=== PATIENT | female | born 1970 | race Caucasian/White ===

== ENCOUNTER → 2024-05-04 08:31 | Outpatient (REF) | payer BC, SELFPAY | LOC: HWWDC 08:31 | PROVIDERS: ATTENDING PHYSICIAN Internal Medicine | DX: Z12.31 Encounter for screening mammogram for malignant neoplasm of breast (principal) | CPT/HCPCS: 77063; 77067 ==

== ENCOUNTER 2024-12-26 15:24 | Emergency (ER) | payer BC, SELFPAY ==
[2024-12-26 15:36] VITALS: BP 152/82
[2024-12-26 16:11] LABS: % Basophils 0.4 % (0-2); % Eosinophils 1.1 % (0-6); % Immature Granulocytes 0.3 % (0-0.5); % Lymphocytes 22.2 % (20.5-51.1); % Monocytes 4.4 % (1.7-9.3); % Neutrophils 71.6 % (42.2-75.2); Absolute Eosinophils 0.1 10^3/uL (0-0.7); Absolute Monocytes 0.4 10^3/uL (0.1-0.6); Absolute Neutrophils 6.6 10^3/uL (1.4-6.5); Hematocrit 42.4 % (37.0-47.0); Hemoglobin 14.3 g/dL (12.0-16.0); Mean Corp Hgb Conc. 33.7 g/dL (33.0-37.0); Mean Corpuscular Hgb 29.5 pg (27.0-31.0); Mean Corpuscular Volume 87.6 fL (81.0-99.0); Mean Platelet Volume 9.8 fL (7.4-10.4); Nucleated Red Blood Cells % 0 %; Platelet Count 253 10^3/uL (130-400); Red Blood Cell Count 4.84 10^6/uL (4.20-5.40); Red Cell Dist. Width 12.8 % (11.5-14.5); White Blood Cell Count 9.2 10^3/uL (4.8-10.8)
[2024-12-26 16:14] LABS: INR 0.96; PT 13.1 Sec (11.4-14.6)
--- NOTE | 2024-12-26 16:15 | ED.GENMED ---
History of Present Illness
<Lio Chaudhari DO - Last Filed: 12/26/24 23:47>
General
Chief Complaint: Cardiac Symptoms
Source: patient and spouse
Exam Limitations: none
Time Seen by Provider: 12/26/24 16:48
Nursing documentation reviewed up to this point in time: agreed with
History of Present Illness
History of Present Illness:
54 yo female presents to the emergency department complaining of right jaw pain and pain behind her shoulder blades. The pain in her jaw is constant, pain about her shoulder blades intermittent.
Past History
<Lio Chaudhari DO - Last Filed: 12/26/24 23:47>
Past History
ED Past Medical History: None
ED Past Surgical History: and Other (Hernia repair, jaw surgery)
Social History
Tobacco: Non-smoker
Alcohol: None
Drug: None
Personal:
Living: with family
Review of Systems
<Lio Chaudhari, DO - Last Filed: 12/26/24 23:47>
Review of Systems
Allergies reviewed?: Yes
All Other Systems: Not applicable
Constitutional: Reports no symptoms
EENT: Reports mouth pain
Respiratory: Reports no symptoms
Cardiac: Reports no symptoms
ABD/GI: Reports no symptoms
: Reports no symptoms
Musculoskeletal: Reports back pain
Skin: Reports no symptoms
Neurological: Reports no symptoms
Endocrine: Reports no symptoms
Hematologic/Lymphatic: Reports no symptoms
Psychiatric: Reports no symptoms
Phy Exam
<Lio Chaudhari DO - Last Filed: 12/26/24 23:47>
Physical Exam
Physical Exam:
Physical Exam
General: no apparent distress, not acutely ill
Neck: supple. no meningeal signs. normal posterior pharynx
Heart: s1/s2 regular rate and rhythm, no murmur. equal radial
pulses.
HEENT: Pupils equal round reactive to light, EOMI
Lungs: no acute respiratory distress. clear bilaterally
Abdomen: normal bowel sounds. not tender. no CVAT
Neuro: alert and oriented. no focal neurological deficits cranial nerves II through XII intact
Skin: no rash
Psychiatric: well kept. interactive and cooperative
Extremities: no edema. no calf tenderness. negative homans. good distal pulses
Scores
<Lio Chaudhari, DO - Last Filed: 12/26/24 23:47>
Heart Score for Chest Pain Patients
STEMI patient?: No
History: Slightly or Non-Suspicious
ECG: Normal
Age: >45 - <65 years
Risk Factors: No Risk Factors
Troponin: </= Normal Limit
Heart Score for Chest Pain Patients: 1
Heart Score Risk: 2.5% MACE over next 6 weeks
Course
<Lio Chaudhari, DO - Last Filed: 12/26/24 23:47>
Orders/Labs/Results
Orders:
Orders
12/26/24 15:25
EKG [Electrocardiogram (*1)] Urgent
Reason for Study: Other
Other Reason for Exam: bilateral shoulder caty pain with jaw right jaw pain
EKG- Treatment ONCE
12/26/24 15:42
CR Chest - 2 Views Urgent
Comment:
Reason For Exam: back pain into the jaw
12/26/24 15:51
Complete Blood Count/With Diff Urgent
Comprehensive Metabolic Panel Urgent
D-Dimer Urgent
Comment: ADD ON
Prothrombin Time Urgent
TSH Reflex To Free T4 Urgent
Troponin I Urgent
12/26/24 17:06
Add On- LAB Urgent
Tests Added?: d dimer
12/26/24 17:36
CT Chest PE Study Urgent
Comment:
Reason For Exam: back pain, elevated ddimer
12/26/24 18:49
Troponin I Urgent
Abnormal Lab Results
12/26/24
15:51
Absolute Neuts (auto) 6.6 H 10^3/uL
(1.4-6.5)
D-Dimer 0.61 H ug/mlFEU
(0.00-0.50)
Glucose 122 H mg/dl
(70-99)
12/26/24 15:51
12/26/24 15:51
Vital Signs
Initial and Last Documented VS:
Initial Vital Signs
Temp Pulse Resp BP Pulse Ox
98.8 F 100 17 152/82 99
12/26/24 15:36 12/26/24 15:36 12/26/24 15:36 12/26/24 15:36 12/26/24 15:36
Last Documented Vital Signs
Temp Pulse Resp BP Pulse Ox
98.8 F 79 18 138/62 100
12/26/24 15:36 12/26/24 20:16 12/26/24 20:16 12/26/24 20:16 12/26/24 20:16
<Lubna Gilman, SE[employer] P[employer] PRESS OPERATOR - Last Filed: >
Orders/Labs/Results
Orders:
Orders
12/26/24 15:25
EKG [Electrocardiogram (*1)] Urgent
Reason for Study: Other
Other Reason for Exam: bilateral shoulder caty pain with jaw right jaw pain
EKG- Treatment ONCE
12/26/24 15:42
CR Chest - 2 Views Urgent
Comment:
Reason For Exam: back pain into the jaw
12/26/24 15:51
Complete Blood Count/With Diff Urgent
Comprehensive Metabolic Panel Urgent
D-Dimer Urgent
Comment: ADD ON
Prothrombin Time Urgent
TSH Reflex To Free T4 Urgent
Troponin I Urgent
12/26/24 17:06
Add On- LAB Urgent
Tests Added?: d dimer
12/26/24 17:36
CT Chest PE Study Urgent
Comment:
Reason For Exam: back pain, elevated ddimer
12/26/24 18:49
Troponin I Urgent
Abnormal Lab Results
12/26/24
15:51
Absolute Neuts (auto) 6.6 H 10^3/uL
(1.4-6.5)
D-Dimer 0.61 H ug/mlFEU
(0.00-0.50)
Glucose 122 H mg/dl
(70-99)
12/26/24 15:51
12/26/24 15:51
Vital Signs
Initial and Last Documented VS:
Initial Vital Signs
Temp Pulse Resp BP Pulse Ox
98.8 F 100 17 152/82 99
12/26/24 15:36 12/26/24 15:36 12/26/24 15:36 12/26/24 15:36 12/26/24 15:36
Last Documented Vital Signs
Temp Pulse Resp BP Pulse Ox
98.8 F 79 18 138/62 100
12/26/24 15:36 12/26/24 20:16 12/26/24 20:16 12/26/24 20:16 12/26/24 20:16
<Lio Chaudhari, DO - Last Filed: 12/26/24 23:47>
MDM/Problems Addressed
Differential Diagnosis Includes:
ACS, PE, aortic dissection
MDM/Problems Addressed:
54-year-old female with mid back pain and jaw pain, likely musculoskeletal. CT chest no PE, no dissection
<Lio Chaudhari DO - Last Filed: 12/26/24 23:47>
*Radiology
Radiology exam reviewed: radiology read reviewed (ct chest nad)
*Pulse Oximetry
Patient hypoxic: no
*EKG
Interpreted by ED Provider?: Yes
EKG Intrepretation Date: 12/26/24
EKG Intrepretation Time: 15:29
Interpretation: abnormal
Comparison EKG: no comparison EKG present
Heart Rate: 107
Rate: tachycardiac
Rhythm: sinus tachycardia
Willis: normal axis
Interval: normal interval
QRS Pattern: normal QRS
Ischemia: non-specific ST changes
*Connie Cleaner Interpretation
Rate: normal
Interpretation: normal
Heart Rate: 75
Rhythm: sinus
*Critical Care Note
Total Time (30-74mins, 75-104mins- exclusive of procedures): Not Applicable
<Lio Chaudhari DO - Last Filed: 12/26/24 23:47>
Patient Management
Escalation/DeEscalation of care consider admission/obs:
admit not indicated
ED Attending Note
<Lubna Gilman, SE[employer] P[employer] PR[employer] OPERATOR - Last Filed: >
-
Portions of this chart may have been created with voice recognition software.� Occasional wrong word or��sound alike� substitutions may have occurred due to the inherent limitations of voice recognition software.
Discharge Plan
Departure
Patient Disposition: Home (Routine Discharge)
Date of Disposition: 12/26/24
Time of Disposition: 20:06
Patient with high blood pressure during this ER visit?: Yes
Condition: Good
Discharge Problem:
Chest pain, Back pain
Instructions: Chest Pain (DC), Back Pain, BLOOD PRESSURE
Referrals:
German Lopez MD [Family Provider] - Call in 1-3 days for appt
Interventions
Interventions:
*Risk Screen - Suicide Last Done: 12/26/24 15:42
*General Assessment Last Done: 12/26/24 15:42
*Neglect/Abuse Screening Last Done: 12/26/24 15:42
ED- Fall Risk Assessment Last Done: 12/26/24 16:47
*ED COVID-19 Vaccine History Last Done: 12/26/24 15:42
*Nursing Disposition Last Done: 12/26/24 20:17
ED- Cardiac Assessment Last Done: 12/26/24 16:47
ED- Pulmonary Assessment Last Done: 12/26/24 16:47
Discharge Date and Time
Discharge Date/Time: 12/26/24 20:17
Print Language: WELSH
[2024-12-26 16:27] LABS: ALT (SGPT) 16 U/L (0-35); AST (SGOT) 25 U/L (14-36); Albumin 4.7 g/dl (3.5-5.0); Alkaline Phosphatase 85 U/L (38-126); Blood Urea Nitrogen 17 mg/dl (7-17); Calcium 9.6 mg/dl (8.4-10.2); Carbon Dioxide 22 mmol/L (22-30); Chloride 106 mmol/L (98-107); Glucose 122 mg/dl (70-99); Potassium 4.6 mmol/L (3.5-5.1); Sodium 140 mmol/L (135-145); Total Bilirubin 0.4 mg/dl (0.2-1.3); Total Protein 7.5 g/dl (6.3-8.2); eGFR > 60.00
[2024-12-26 16:29] LABS: Troponin I < 0.012 ng/ml
[2024-12-26 16:58] VITALS: BP 147/78
[2024-12-26 17:12] LABS: TSH Reflex To Free T4 0.99 uIU/ml (0.47-4.68)
[2024-12-26 17:20] LABS: D-Dimer 0.61 ug/mlFEU (0.00-0.50)
[2024-12-26 17:50] VITALS: BP 144/68
[2024-12-26 19:19] LABS: Troponin I < 0.012 ng/ml
[2024-12-26 20:16] VITALS: BP 138/62
== END 2024-12-26 20:17 | disposition home or self-care (01) ==
LOC: EMR 15:24
PROVIDERS: Registered Nurse; EMERGENCY PHYSICIAN Emergency Medicine; FAMILY PHYSICIAN Internal Medicine
DX: M54.6 Pain in thoracic spine (principal); R68.84 Jaw pain; R07.9 Chest pain, unspecified; R00.0 Tachycardia, unspecified; R03.0 Elevated blood-pressure reading, without diagnosis of hypertension; Z88.1 Allergy status to other antibiotic agents; Z88.0 Allergy status to penicillin
CPT/HCPCS: 99285; 71046; 71275; 80053; 84443; 84484; 85025; 85379; 85610; 93005; Q9967

== ENCOUNTER 2025-10-23 23:12 | Emergency (ER) | payer OTHER, SELFPAY ==
--- NOTE | 2025-10-23 23:17 | ED.SKININJ ---
HPI-Injury
General
Chief Complaint: Rabies
Source: patient
Exam Limitations: none
Time Seen by Provider: 10/23/25 23:17
Nursing documentation reviewed up to this point in time: agreed with
History of Present Illness-Injury
Initial Injury comments:
Patient in her kitchen when a bat flew out her . No known bite but in the flurry, the bat did fly at her face and as she was covering her head and ducking it may have hit her head and states she cannot be not sure if it bit her. No past medical
history.
Past History
Past History
ED Past Medical History: None
ED Past Surgical History: and Other (Hernia repair, jaw surgery)
Social History
Tobacco: Non-smoker
Alcohol: None
Drug: None
Personal:
Living: with family
Review of Systems
Review of Systems
Allergies reviewed?: Yes
All Other Systems: ROS reviewed and negative except as documented in HPI and ROS
Phy Exam
Physical Exam
Physical Exam:
PHYSICAL EXAMINATION:
General: no apparent distress, not acutely ill
Neuro: alert and oriented.
Heart: RRR
Lungs: CTA
Psychiatric: well kept. interactive and cooperative
Musculoskeletal: Moves with ease
Skin: Warm, pink.
Course
Orders/Labs/Results
Orders:
Orders
10/24/25 00:30
Rabies Vaccine (Pcec)/Pf [Rabavert Rabies Vacc W-Diluent] 2.5 unit IM .ONCE ONE
10/24/25 00:43
Rabies Immune Globulin/Pf [HyperRAB] 1,440 unit IM NOW STA
Vital Signs
Initial and Last Documented VS:
Initial Vital Signs
Temp Pulse Resp BP Pulse Ox
97.8 F 88 18 118/79 98
10/23/25 23:20 10/23/25 23:20 10/23/25 23:20 10/23/25 23:20 10/23/25 23:20
Last Documented Vital Signs
Temp Pulse Resp BP Pulse Ox
97.8 F 88 18 118/79 98
10/23/25 23:20 10/23/25 23:20 10/23/25 23:20 10/23/25 23:20 10/23/25 23:20
MDM/Problems Addressed
MDM/Problems Addressed:
Patient in her kitchen when a bat flew out her . No known bite but in the flurry, the bat did fly at her face and as she was covering her head and ducking it may have hit her head and states she cannot be not sure if it bit her. No past medical
history.
*Pulse Oximetry
Patient hypoxic: not evaluated
*Critical Care Note
Total Time (30-74mins, 75-104mins- exclusive of procedures): Not Applicable
ED Attending Note
-
Portions of this chart may have been created with voice recognition software.� Occasional wrong word or��sound alike� substitutions may have occurred due to the inherent limitations of voice recognition software.
Discharge Plan
Departure
Patient Disposition: Home (Routine Discharge)
Date of Disposition: 10/24/25
Time of Disposition: 01:02
Patient with high blood pressure during this ER visit?: No
Condition: Good
Discharge Problem:
Need for immunization against rabies
Instructions: Rabies Vaccine
Prescriptions:
New
Imovax Rabies Vaccine (PF) 2.5 unit recon soln
1 ml IM ONCE Qty: 4 0RF
Rx Instructions:
Give 1 ml IM on the following dates: 10/26,10/30, 11/06
Stand Alone Forms: Rabies Vaccine Post Exp Dosing
Activity Restrictions/Additional Instructions:
As we discussed, call the outpatient infusion center first thing Wednesday morning to make your appointment. Take the prescription with you.
Interventions
Interventions:
*Risk Screen - Suicide Last Done: 10/23/25 23:26
*General Assessment Last Done: 10/23/25 23:26
*Neglect/Abuse Screening Last Done: 10/23/25 23:26
*ED- Fall Risk Assessment Last Done: 10/23/25 23:26
*ED COVID-19 Vaccine History Last Done: 10/23/25 23:26
*ED Influenza Vaccine History Last Done: 10/23/25 23:26
*Nursing Disposition Last Done: 10/24/25 01:13
Discharge Date and Time
Discharge Date/Time: 10/24/25 01:13
Print Language: NIUEAN
[2025-10-23 23:20] VITALS: BP 118/79
[2025-10-24] MEDS: RABAVERT RABIES VACC W-DILUENT 2.5 UNIT IM (00:26)
== END 2025-10-24 01:13 | disposition home or self-care (01) ==
LOC: EMR 23:12
PROVIDERS: EMERGENCY PHYSICIAN Emergency Medicine; FAMILY PHYSICIAN Internal Medicine
DX: Z20.3 Contact with and (suspected) exposure to rabies (principal); Z23 Encounter for immunization; Z29.14 Encounter for prophylactic rabies immune globulin
CPT/HCPCS: 99281; 90471; 96372; 90375; 90675

== ENCOUNTER 2025-10-26 12:52 | Outpatient (RCR) | payer OTHER, SELFPAY ==
[2025-10-26 13:00] VITALS: BP 117/70
[2025-10-26] MEDS: RABAVERT RABIES VACC W-DILUENT 2.5 UNIT IM (13:21)
== END 2025-10-28 23:59 | disposition home or self-care (01) ==
LOC: OID 12:52
PROVIDERS: ATTENDING PHYSICIAN Emergency Medicine; FAMILY PHYSICIAN Internal Medicine
DX: Z20.3 Contact with and (suspected) exposure to rabies (principal); Z23 Encounter for immunization
CPT/HCPCS: 90471; 90675

== ENCOUNTER 2025-11-06 15:11 | Outpatient (RCR) | payer OTHER, SELFPAY ==
[2025-10-30 15:16] VITALS: BP 123/36
[2025-10-30] MEDS: RABAVERT RABIES VACC W-DILUENT 2.5 UNIT IM (15:23)
[2025-11-06 15:18] VITALS: BP 119/78
[2025-11-06] MEDS: RABAVERT RABIES VACC W-DILUENT 2.5 UNIT IM (15:26)
== END 2025-11-07 10:40 | disposition home or self-care (01) ==
LOC: OID 15:11
PROVIDERS: ATTENDING PHYSICIAN Emergency Medicine; FAMILY PHYSICIAN Internal Medicine
DX: Z20.3 Contact with and (suspected) exposure to rabies (principal); Z23 Encounter for immunization
CPT/HCPCS: 90471; 90675